=== PATIENT | male | born 1985 ===

== ENCOUNTER 2017-04-07 10:43 | Emergency (ER) | payer SELFPAY | END 2017-04-07 11:30 | disposition home or self-care (01) | LOC: ED 10:43 | DX: Z53.9 Procedure and treatment not carried out, unspecified reason (principal) ==

== ENCOUNTER 2018-02-04 04:49 | Emergency (ER) | payer SELFPAY ==
[2018-02-04 05:02] VITALS: BP 146/99; PULSE 88; O2SAT 97
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
== END 2018-02-04 05:31 | disposition home or self-care (01) ==
LOC: ED 04:49
DX: S01.111A Laceration without foreign body of right eyelid and periocular area, initial encounter (principal); S05.11XA Contusion of eyeball and orbital tissues, right eye, initial encounter; F10.920 Alcohol use, unspecified with intoxication, uncomplicated; V89.2XXA Person injured in unspecified motor-vehicle accident, traffic, initial encounter
CPT/HCPCS: 82962; 93005; 99282